=== PATIENT | male | born 1960 | race Two or more races ===

== ENCOUNTER 2023-10-04 12:37 | Emergency (ER) | payer OTHER ==
[2023-10-04 13:11] VITALS: BP 133/47; PULSE 82; RESP 18; TEMP 97.3; BMI 28.7
[2023-10-04] MEDS ORDERED: ACETAMINOPHEN 325 MG TABLET (FP) PO ONE (13:59)
[2023-10-04] MEDS ORDERED: ACETAMINOPHEN 325 MG TABLET (FP) ONE (14:11)
== END 2023-10-04 16:40 | disposition home or self-care (01) ==
LOC: JER 12:37
PROC: 2W3CX1Z Immobilization of Right Lower Arm using Splint (ICD-10-PCS; principal; 2023-10-04)
DX: S52.502A Unspecified fracture of the lower end of left radius, initial encounter for closed fracture (principal); M25.532 Pain in left wrist; M79.632 Pain in left forearm; W10.9XXA Fall (on) (from) unspecified stairs and steps, initial encounter
CPT/HCPCS: 73090-TC-LT-FY; 73110-TC-LT-FY; 73130-TC-LT-FY; 93970-TC; 99284-25